=== PATIENT | female | born 1945 | race Caucasian/White ===

== ENCOUNTER 2018-04-01 09:52 | Emergency (ER) | payer MEDICARE, BC ==
[2018-04-01 10:17] VITALS: BP 184/76
--- NOTE | 2018-04-01 12:36 | EDM.PDOC ---
ED HPI GENERAL MEDICAL PROBLEM - General Chief Complaint: General Stated Complaint: LIGHTHEADED AND PRESSURE TO RIGHT SIDE OF HEAD Time Seen by Provider: 04/01/18 10:24 Source of Information: Reports: Patient, RN Notes Reviewed - History of Present Illness INITIAL COMMENTS - FREE TEXT/NARRATIVE: 72-year-old lady comes in with right-sided headache, right-sided sensation of sinus pressure and nonspecific dizziness. This has been going on for several weeks but more bothersome the last few days. She wonders if she may have a sinus infection. However she does not describe postnasal drainage and is currently not blowing hardly anything out of her nose. No fever or chills. No nausea or vomiting. Her sensation of dizziness is very nonspecific. She acknowledges that these various symptoms of unknown origin making her feel anxious and that is not helping. Also she has had some high blood pressure readings at home over the last day or 2. Right Head Pain Score (Numeric/FACES): 2 - Related Data Allergies Allergy/AdvReac Type Severity Reaction Status Date / Time acetaminophen AdvReac "passes Verified 04/01/18 10:13 [From Excedrin Tension out" Headache] caffeine AdvReac "passes Verified 04/01/18 10:13 [From Excedrin Tension out" Headache] Home Meds: Home Meds Aspirin [Adult Aspirin] 81 mg PO DAILY 04/01/18 [History] Cholecalciferol (Vitamin D3) [Vitamin D3] 1,000 units PO DAILY 04/01/18 [History ] Losartan [Cozaar] 50 mg PO DAILY 04/01/18 [History] atorvaSTATin [Lipitor] 10 mg PO BEDTIME 04/01/18 [History] metFORMIN [Glucophage] 250 mg PO BIDMEALS 04/01/18 [History] Past Medical History HEENT History: Reports: Impaired Vision Cardiovascular History: Reports: High Cholesterol, Hypertension Other Gastrointestinal History: Heartburn and history of rectal bleeding Genitourinary History: Reports: Other (See Below) Other Genitourinary History: jaundice Other Musculoskeletal History: Left hand pain, right sided sciatica Endocrine/Metabolic History: Reports: Other (See Below) Other Endocrine/Metabolic History: Patient states she has pre-diabetes and an enlarged thyroid nodule - Past Surgical History HEENT Surgical History: Reports: Tonsillectomy Female Surgical History: Reports: Hysterectomy Other Musculoskeletal Surgeries/Procedures:: Right carpal tunnel release Social & Family History - Tobacco Use Smoking Status *Q: Former Smoker Used Tobacco, but Quit: Yes Month/Year Tobacco Last Used: 4 years ago Second Hand Smoke Exposure: No - Caffeine Use Caffeine Use: Reports: None - Recreational Drug Use Recreational Drug Use: No ED ROS GENERAL - Review of Systems Review Of Systems: See Below Constitutional: Denies: Fever, Chills, Diaphoresis HEENT: Reports: Sinus Problem (She feels like there is pressure right side of her face). Denies: Dental Pain, Ear Pain, Rhinitis, Throat Pain Respiratory: Denies: Shortness of Breath, Cough Cardiovascular: Denies: Chest Pain GI/Abdominal: Denies: Nausea, Vomiting Musculoskeletal: Reports: Neck Pain (She does have mild right-sided neck discomfort, primarily posterior neck). Denies: Leg Pain, Foot Pain Skin: Reports: No Symptoms Neurological: Denies: Numbness, Tingling, Trouble Speaking, Difficulty Walking ED EXAM, GENERAL - Physical Exam Exam: See Below General Appearance: Alert, Anxious Eye Exam: Bilateral Eye: PERRL Ear Exam: Bilateral Ear: Canal Normal, TM normal Nose: Normal Inspection Throat/Mouth: Normal Inspection, Normal Oropharynx Head: Atraumatic. No: Facial Swelling, Facial Tenderness, Sinus Tenderness Neck: Supple, Full Range of Motion. No: Lymphadenopathy (L), Lymphadenopathy (R ) Respiratory/Chest: No Respiratory Distress, Lungs Clear, Normal Breath Sounds Cardiovascular: Regular Rate, Rhythm GI/Abdominal: Soft, Non-Tender Extremities: Normal Inspection, Normal Range of Motion Neurological: Alert, Oriented, No Motor/Sensory Deficits Skin Exam: Warm, Dry Course - Vital Signs Last Recorded V/S: Last Vital Signs Temp 98.4 F 04/01/18 10:13 Pulse 94 04/01/18 10:13 Resp 18 04/01/18 10:13 BP 184/76 H 04/01/18 10:13 Pulse Ox 98 04/01/18 10:13 - Orders/Labs/Meds Labs: Laboratory Tests 04/01/18 04/01/18 Range/Units 10:49 10:49 WBC 8.31 (3.98-10.04) K/mm3 RBC 4.78 (3.98-5.22) M/mm3 Hgb 13.5 (11.2-15.7) gm/L Hct 42.2 (34.1-44.9) % MCV 88.3 (79.4-94.8) fl MCH 28.2 (25.6-32.2) pg MCHC 32.0 L (32.2-35.5) g/dl RDW Std Deviation 47.2 H (36.4-46.3) fL Plt Count 291 (182-369) K/mm3 MPV 9.9 (9.4-12.3) fl Neut % (Auto) 69.4 (34.0-71.1) % Lymph % (Auto) 19.4 (19.3-51.7) % Saline % (Auto) 8.2 (4.7-12.5) % Eos % (Auto) 2.5 (0.7-5.8) Baso % (Auto) 0.4 (0.1-1.2) % Neut # (Auto) 5.77 (1.56-6.13) K/mm3 Lymph # (Auto) 1.61 (1.18-3.74) K/mm3 Saline # (Auto) 0.68 H (0.24-0.36) K/mm3 Eos # (Auto) 0.21 (0.04-0.36) K/mm3 Baso # (Auto) 0.03 (0.01-0.08) K/mm3 Sodium 146 H (136-145) mEq/L Potassium 3.8 (3.5-5.1) mEq/L Chloride 110 H (98-107) mEq/L Carbon Dioxide 28 (21-32) mEq/L Anion Gap 11.8 (5-15) BUN 15 (7-18) mg/dL Creatinine 0.9 (0.55-1.02) mg/dL Est Cr Clr Drug Dosing 44.03 mL/min Estimated GFR (MDRD) > 60 (>60) mL/min BUN/Creatinine Ratio 16.7 (14-18) Glucose 205 H (83-115) mg/dL Calcium 8.8 (8.5-10.1) mg/dL Total Bilirubin 0.3 (0.2-1.0) mg/dL AST 17 (15-37) U/L ALT 25 (14-59) U/L Alkaline Phosphatase 108 (46-116) U/L Total Protein 6.9 (6.4-8.2) g/dl Albumin 3.4 (3.4-5.0) g/dl Globulin 3.5 gm/dL Albumin/Globulin Ratio 1.0 (1-2) - Re-Assessments/Exams Free Text/Narrative Re-Assessment/Exam: 04/01/18 12:50 Labs were relatively normal, glucose 205 but she states she did just eat some cereal prior to coming. The pressures have been improved from the initial which was moderately elevated but continued to run high range of normal to just above normal with a lot of readings in the 150 systolic. Will not change her meds at this time. I've asked that she check her blood pressure 2-3 times daily while at home, keep a log follow-up clinic in about one week. Discharge instructions as documented. Departure - Departure Time of Disposition: 12:35 Disposition: Home, Self-Care 01 Condition: Fair Clinical Impression: Dizziness, nonspecific Hypertension Qualifiers: Hypertension type: essential hypertension Qualified Code(s): I10 - Essential ( primary) hypertension - Discharge Information Instructions: Dizziness, [id number], Hypertension Referrals: Robert Rosales MD [Primary Care Provider] - Forms: ED Department Discharge Additional Instructions: Your blood pressures have been running mildly high as discussed while here in the ED. Plan to try check your blood pressures 2 or 3 times daily while at home , keep a record for Dr. Seth. Follow-up with Dr. Seth in about 1 week, call for appointment. No evidence for sinus infection today. Therefore antibiotics today not clinically indicated.
== END 2018-04-01 12:47 | disposition home or self-care (01) ==
LOC: JD.ED 09:52
DX: I10 Essential (primary) hypertension (principal); E78.00 Pure hypercholesterolemia, unspecified; Z87.891 Personal history of nicotine dependence; Z79.82 Long term (current) use of aspirin; Z88.6 Allergy status to analgesic agent; Z91.09 Other allergy status, other than to drugs and biological substances
CPT/HCPCS: 36415; 80053; 85025; 99284

== ENCOUNTER 2022-04-06 11:19 | Day surgery (SDC) | payer MEDICARE, BC ==
[~2022-04-06 11:19] MED LIST: Cefuroxime 10 MG/ML SYRINGE EYERT SCH; Lidocaine 1% PF 2 ML SDV INJECT SCH; Pilocarpine 4% Ophth Soln 15 ML Bot EYERT SCH
[2022-04-06] MEDS: Polymyxin B/Trimethoprim 10 ML Bottle EYERT SCH ×3 (12:00→13:43)
[2022-04-06] MEDS: Brimonidine 0.2% Ophth Soln 5 ML Bottle EYERT SCH ×3 (12:07→13:43)
[2022-04-06] MEDS: Phenylephrine 2.5% Ophth Soln 2 ML Bot EYERT SCH ×5 (12:12→13:17)
[2022-04-06] MEDS: Tropicamide 1% Ophth Soln 15 ML Bottle EYERT SCH ×4 (12:21→13:05)
[2022-04-06] MEDS: Tetracaine HCl/PF 0.5% 4 ML Bottle EYEBOTH SCH ×4 (13:12→13:27)
[2022-04-06 14:12] VITALS: BP 132/68; PULSE 77
== END 2022-04-06 14:00 | disposition home or self-care (01) ==
LOC: JD.SDS 11:19
PROVIDERS: ATTEND Ophthalmology
DX: H25.813 Combined forms of age-related cataract, bilateral (principal); H35.3131 Nonexudative age-related macular degeneration, bilateral, early dry stage; H35.363 Drusen (degenerative) of macula, bilateral; H35.021 Exudative retinopathy, right eye; H16.223 Keratoconjunctivitis sicca, not specified as Sjogren's, bilateral; H02.834 Dermatochalasis of left upper eyelid; H52.31 Anisometropia; I10 Essential (primary) hypertension; E78.00 Pure hypercholesterolemia, unspecified; Z79.02 Long term (current) use of antithrombotics/antiplatelets; Z91.048 Other nonmedicinal substance allergy status; Z98.890 Other specified postprocedural states; Z90.710 Acquired absence of both cervix and uterus; Z79.82 Long term (current) use of aspirin; Z79.899 Other long term (current) drug therapy
CPT/HCPCS: 66984; J0697; C1780

== ENCOUNTER → 2022-05-11 | Day surgery (SDC) | payer MEDICARE, BC ==
[~2022-05-11] MED LIST changes: +Cefuroxime 10 MG/ML SYRINGE EYELF SCH; -Cefuroxime 10 MG/ML SYRINGE EYERT SCH; +Pilocarpine 4% Ophth Soln 15 ML Bot EYELF SCH; -Pilocarpine 4% Ophth Soln 15 ML Bot EYERT SCH
[2022-05-11] MEDS: Polymyxin B/Trimethoprim 10 ML Bottle EYELF SCH ×3 (13:35→15:31)
[2022-05-11] MEDS: Brimonidine 0.2% Ophth Soln 5 ML Bottle EYELF SCH ×3 (13:40→15:31)
[2022-05-11 13:41] VITALS: PULSE 78
[2022-05-11] MEDS: Phenylephrine 2.5% Ophth Soln 2 ML Bot EYELF SCH ×5 (13:45→15:10)
[2022-05-11] MEDS: Tropicamide 1% Ophth Soln 15 ML Bottle EYELF SCH ×4 (13:50→14:31)
[2022-05-11] MEDS: Tetracaine HCl/PF 0.5% 4 ML Bottle EYEBOTH SCH ×4 (14:50→15:15)
[2022-05-11 15:59] VITALS: BP 144/76
== END ==
LOC: JD.SDS 12:35
PROVIDERS: ATTEND Ophthalmology
DX: H25.812 Combined forms of age-related cataract, left eye (principal); I10 Essential (primary) hypertension; Z98.890 Other specified postprocedural states; Z87.891 Personal history of nicotine dependence; Z88.8 Allergy status to other drugs, medicaments and biological substances
CPT/HCPCS: 66984; J0697; C1780